=== PATIENT | male | born 1975 | race Two or more races ===

== ENCOUNTER 2025-01-16 16:30 | Emergency (ER) | payer OTHER ==
[~2025-01-16] VITALS: Ht 172.7 cm; Wt 104.3 kg
[2025-01-16 16:39] VITALS: TEMP 97.9
[2025-01-16 18:19] VITALS: BP 145/82; O2SAT 98
== END 2025-01-16 18:19 | disposition home or self-care (01) ==
LOC: ER 16:44
DX: L76.82 Other postprocedural complications of skin and subcutaneous tissue (principal); I10 Essential (primary) hypertension; Z98.890 Other specified postprocedural states
CPT/HCPCS: 73564-TC; 93971-TC